=== PATIENT | female | born 1940 | race Caucasian/White ===

== ENCOUNTER 2017-02-23 14:55 | Emergency (ER) | payer MEDICARE ==
--- NOTE | 2017-02-23 15:22 | ED ---
Laceration/Wound HPI - HPI Summary HPI Summary: 76 year old female presents with abrasion of left 4th toe secondary to blunt injury. - History of Current Complaint Stated Complaint: CUT ON TOE Time Seen by Provider: 02/23/17 15:21 Hx Last Menstrual Period: n/a - Allergy/Home Medications Allergies/Adverse Reactions: Allergies Allergy/AdvReac Type Severity Reaction Status Date / Time Ascorbic Acid & Derivatives Allergy Rash Verified 02/23/17 15:17 Morphine Allergy "Sends me Verified 02/23/17 15:17 on a bad trip..." Tramadol Allergy See Comment Verified 02/23/17 15:17 Wasp Venom Protein Allergy Swelling Verified 02/23/17 15:17 tammie nut Allergy Difficulty Uncoded 02/23/17 15:17 Breathing Home Medications: Home Medications Carvedilol TAB* [Coreg TAB*] 1 tab DAILY 02/23/17 [History Confirmed 02/23/17] Clopidogrel TAB* [Plavix TAB*] 1 tab DAILY 02/23/17 [History Confirmed 02/23/17] Diltiazem HCl Coated Beads [Cardizem 180 MG LA] 1 tab DAILY 02/23/17 [History Confirmed 02/23/17] oxyCODONE TAB* [Roxycodone TAB 5 mg*] 1 tab Q4HR PRN 02/23/17 [History Confirmed 02/23/17] PMH/Surg Hx/FS Hx/Imm Hx Previously Healthy: Yes Endocrine/Hematology History: Reports: Hx Anticoagulant Therapy - Aspirin daily. , Hx Diabetes Denies: Hx Thyroid Disease Cardiovascular History: Reports: Hx Hypertension Denies: Hx Congestive Heart Failure, Hx Deep Vein Thrombosis, Hx Myocardial Infarction, Hx Pacemaker/ICD Respiratory History: Denies: Hx Asthma, Hx Chronic Obstructive Pulmonary Disease (COPD), Hx Lung Cancer, Hx Pneumonia, Hx Pulmonary Embolism GI History: Denies: Hx Gall Bladder Disease, Hx Gastrointestinal Bleed, Hx Ulcer, Hx Urosepsis History: Denies: Hx Kidney Stones, Hx Renal Disease Neurological History: Denies: Hx Dementia, Hx Migraine, Hx Seizures, Hx Transient Ischemic Attacks (TIA) Psychiatric History: Denies: Hx Anxiety, Hx Depression, Hx Schizophrenia, Hx Bipolar Disorder - Surgical History Surgery Procedure, Year, and Place: T&A 195, D&C 1975, Hysterectomy 1986, Rectal "Surg" 1987, "Abdominal Stent" 1997, Deviated Septum 1998, Breast Reduction 1999, Colonoscopy 2003, Endoscopy 2006, Eyelid Lift 2006, Bilateral Cataract Extraction 2013, Trigger finger sx both hands 2013 Infectious Disease History: Reports: Hx Shingles Denies: Hx Clostridium Difficile, Hx Hepatitis, Hx Human Immunodeficiency Virus (HIV), Hx of Known/Suspected MRSA, Hx Tuberculosis, Hx Known/Suspected VRE , Hx Known/Suspected VRSA, History Other Infectious Disease - Family History Known Family History: Negative: Cardiac Disease, Hypertension - Social History Alcohol Use: Occasionally Substance Use Type: Reports: None Smoking Status (MU): Former Smoker Type: Cigarettes Length of Time of Smoking/Using Tobacco: 38 Years Have You Smoked in the Last Year: No Review of Systems Constitutional: Negative Eyes: Negative ENT: Negative Cardiovascular: Negative Respiratory: Negative Gastrointestinal: Negative Musculoskeletal: Negative Positive: Other - abrasion of left 4th toe All Other Systems Reviewed And Are Negative: Yes Laceration Repair Course/Dx - Clinical Impression Provider Diagnoses: Abrasion of toe Discharge - Discharge Plan Condition: Stable Disposition: HOME Prescriptions: Cephalexin CAP* [Keflex CAP*] 500 mg PO TID #30 cap Patient Education Materials: Laceration (ED), Wound Infection (ED) Referrals: Carlos Espinoza MD [Primary Care Provider] - If Needed
[2017-02-23 15:28] VITALS: BP 112/46
[2017-02-23] MEDS ORDERED: Tetan/Diph/Pertus SYR(Tdap)* 0.5 ML SYR(BOOSTRIX) use SYR IM ONE (15:40)
== END 2017-02-23 16:16 | disposition home or self-care (01) ==
LOC: UCCORT 14:55
DX: S90.415A Abrasion, left lesser toe(s), initial encounter (principal); W22.8XXA Striking against or struck by other objects, initial encounter; Y93.9 Activity, unspecified; Y92.9 Unspecified place or not applicable; Z23 Encounter for immunization; E11.9 Type 2 diabetes mellitus without complications; I10 Essential (primary) hypertension; Z79.82 Long term (current) use of aspirin; Z88.5 Allergy status to narcotic agent; Z91.030 Bee allergy status; Z87.891 Personal history of nicotine dependence
CPT/HCPCS: 90471; 90715; 99213; G0463